=== PATIENT | female | born 1965 | race Caucasian/White ===

== ENCOUNTER 2018-09-14 20:38 | Emergency (ER) | payer OTHER, BC ==
[~2018-09-14] VITALS: Ht 157.5 cm; Wt 90.3 kg
[~2018-09-14 20:38] MED LIST: ACCUNEB SO1.25 MG/1; ACETAMINOPHEN325 M1 PO; ADVAIR 250-501 EACH IH; ADVAIR DISKU INH; ADVAIRDISKUS; ALDACTONE50 MG PO; AMBIEN PO; AMITIZA 24 MCG24 MC1 PO; AMITIZA8 MCG PO; AMITIZA8 MCG SUBQ; AMPHETAMINE SAL20 M1 PO; ASA81BEC PO; ASPIRIN325 PO; ATIVAN; ATIVAN0.5 MG PO; ATIVAN1 MG PO; ATIVAN2 MG IV; B12INJ IM; BACTROBAN NASAL1 GM NS; BENADRYL19 MG IV; BENAFIBER; BENZONATATE100 MG PO; BISACODYL5 MG PO; Benadryl IV; CALCIUM OYSTER500 MG PO; CARAFATE 1 GM TA1 G1 PO; CARISOPRODOL 3350 MG PO; CEFPODOXIME PR200 M1 PO; CELEBREX 200 M200 M1 PO; CELEBREX PO; CELLCEPT500 MG PO; CITRATE OF MAG296 ML PO; CITRATE OF MAG300 ML PO; CLEOCIN HCL150 MG PO; CLINDAMYCIN PO; CLONAZEPAM; CLONAZEPAM 1 MG1 M1 PO; COLACE100 MG PO; CRESTOR10 MG PO; CRESTOR5 MG PO; CYMBALTA PO; CYMBALTA30 MG PO; CYMBALTA60 MG PO; DIFLUCAN150 MG PO; DILAUDID; DILAUDID 2 MG TA2 MG PO; DILAUDID 4 MG TA4 M1 PO; DILAUDID2 M1 IV; DILAUDID4 MG PO; DIPHENHIST25 M2 PO; DIPHENHIST50 MG PO; DIPHENHYDR50 MG/1 ML IV; DITROPAN XL5 MG PO; DOLOPHINE HCL10 MG PO; DOLOPHINE HCL5 MG PO; DOXYCYCLINE 10100 MG PO; DUONEB 2.5-0.5 M3 ML IH; Dilaudid IV; EXCEDRIN CAPLE1 EACH PO; EXCEDRIN MIGRA1 EAC1 PO; FOLIC ACID PO; FOLIC ACID1 MG PO; FUROSEMIDE40 MG/4 ML PO; HALDOL; HYDROCHLOROTH12.5 M1 PO; HYDROXYZINE; IBUPROFEN 200200 M1 PO; IBUPROFEN 400400 M1 GT; IBUPROFEN 800800 M1 PO; JANTOVEN10 MG PO; K-DUR 20 MEQ T20 MEQ PO; KLONOPIN1 MG PO; KLOR-CON 1010 MEQ PO; KLOR-CON20 MEQ PO; LASIX; LASIX 40 MG TAB40 MG PO; LEVAQUIN 500 M500 M2 PO; LINZESS290 MCG PO; MAALOX525 MG/15 PO; MACROBID 100 M100 M2 PO; MAG-AL PLUS XS30 ML PO; MAGNES PO; MAGOX 400400 MG PO; MEDROL; METFORMIN 500500 MG PO; METHADONE HCL 110 M1 PO; METHADONE HCL5 MG PO; METHADOSE10 M1 PO; METHADOSE10 MG PO; METHYLPREDNISOLO1 GM PO; MIRALAX255 GM PO; MOBIC15 MG PO; MOM PO; MUCINEX600 MG PO; NEURONTIN 300300 M1 PO; NEXIUM40 MG PO; OMEGA XL PO; PEPCID AC20 M1 PO; PERCOCET 5-3251 EACH PO; PHENAZOPYRIDIN200 M2 PO; PHENERGAN 25 MG25 M1 PO; PHENERGAN IV; POTASSIUM PO; PREDNISONE 10 M10 MG PO; PREDNISONE 20 M20 M1 PO; PROZAC10 MG PO; PYRIDIUM200 MG PO; ROSE HIP PO; SIMBICORT; SOLU-MEDRO40 MG/1 M1 IV; SUDAFED 12 HOU120 MG PO; SYMBICORT80 MCG/4.5 INH; SYNTHROID 0.10.1 M1 PO; SYNTHROID100 MCG PO; SYNTHROID25 MCG PO; TOPAMAX 25 MG T25 M1 PO; TOPAMAX PO; TOPAMAX100 MG PO; TOPAMAX200 MG PO; TRANSDERM-SCOP1 EACH TD; TUMS PO; VALCYTE450 MG PO; VICODIN; VITAMIN B COMP1 EAC7 PO; VITAMIN C + RO500 MG PO; VITAMIN D 5050000 I1 PO; VITAMIN D400 UNI1 PO; XARELTO10 M1 PO; ZANAFLEX4 M1 PO; ZANAFLEX4 MG PO; ZOFRAN; ZOFRAN ODT4 MG PO; ZOFRAN8 MG SL; ZPAK PO; ZYRTEC 10 MG TA10 MG PO; [UNRECOGNIZED DRUG - OTHER]; ferrous sulfate PO
[2018-09-15 01:12] VITALS: BP 95/44
== END 2018-09-15 01:13 | disposition home or self-care (01) ==
LOC: ER 20:38
DX: R51 Headache (principal); I48.91 Unspecified atrial fibrillation; J45.909 Unspecified asthma, uncomplicated; Z90.49 Acquired absence of other specified parts of digestive tract; Z91.041 Radiographic dye allergy status; Z88.0 Allergy status to penicillin; Z88.2 Allergy status to sulfonamides; Z91.018 Allergy to other foods